=== PATIENT | female | born 1970 | race Caucasian/White ===

== ENCOUNTER 2017-12-17 15:30 | Outpatient (RCR) | payer BC, SELFPAY ==
--- NOTE | 2017-11-04 15:54 | HMH.PTOPEV ---
Rehab Outpatient Evaluation Rehab OP Evaluation Start: 11/04/17 15:35 Freq: Status: Active Protocol: Document 11/04/17 15:35 GURU (Rec: 11/04/17 15:54 GURU [id number]) Electronically Signed By Aravind Mtz, PT 11/04/17 15:35 Outpatient Therapy Subjective History Subjective History Pt reports h/o chronic neck pain beginning ~1 yr ago. Pt reports insidious onset with L > R sided neck pain, and intermittent radicular s/s from L SH area to L hand. Chief Complaint Pain Spasms Stiff Paresthesia Weakness Symptom Type Ache Throb Sharp Dull Stabbing Burning Numbness Tingling Shooting Symptoms Relieved By Rest/Positioning Heat OTC Meds Prescription Meds Symptoms Aggravated By Physical Activity Lifting Prior Functional Limitations None Current Functional Limitations Reaching Lifting Housework Driving Symptom Description Constant but Variable Level of pain today (0-10) 3 Pain scale - at its best (0-10) 2 Pain scale - at its worst (0-10) 8 Cervical Eval Palpation Cervical Muscles L Cervical Paraspinal L Suboccipital R CT Junction L CT Junction L Upper Trapezius Cervical/Thoracic Palpation Findings Tenderness Trigger Point Muscle Guarding Posture Head/C-Spine Posture Sitting Position Neutral Position Head/C-Spine Posture Standing Position Neutral Position Flexibility Deficits Upper Trapezius Muscle Length (L) Moderate Tightness Scalene Group Muscle Length (L) Moderate Tightness Sternocleidomastoid Muscle Length (L) Moderate Tightness Passive Joint Mobility Cervical PIVM Dec: R C3/4 L C3/4 R C4/5 L C4/5 R C5/6
== END 2017-12-17 15:31 | disposition home or self-care (01) ==
LOC: PT 15:30
PROVIDERS: Family Provider Emergency Medicine; PCP Emergency Medicine; Visit Provider Emergency Medicine
DX: M54.2 Cervicalgia (principal)
CPT/HCPCS: 97010; 97012; 97014; 97035; 97110; 97140; G0283

== ENCOUNTER → 2017-12-24 09:02 | Outpatient (REF) | payer BC, SELFPAY ==
[2017-12-25 12:15] LABS: Amphetamine/Metha Screen,Urine Negative ng/mL (<1000); Barbiturates Screen,Urine Negative ng/mL (<200); Benzodiazepines Screen,Urine Negative ng/mL (200); Cannabinoid Screen,Urine Negative ng/mL (<50); Cocaine Screen,Urine Negative ng/g (<300); Methadone Screen,Urine Negative ng/mL (<300); Opiate Screen,Urine Negative ng/mL (<300); Phencyclidine Screen,Urine Negative ng/mL (<25)
== END ==
LOC: LAB 09:02
PROVIDERS: Visit Provider Emergency Medicine
DX: F41.9 Anxiety disorder, unspecified (principal); Z79.899 Other long term (current) drug therapy
CPT/HCPCS: 80305

== ENCOUNTER → 2018-01-22 10:12 | Outpatient (CLI) | payer BC, SELFPAY | PROVIDERS: Visit Provider Emergency Medicine | DX: M54.2 Cervicalgia (principal); R10.11 Right upper quadrant pain ==

== ENCOUNTER → 2018-02-05 08:03 | Outpatient (CLI) | payer BC, SELFPAY ==
--- NOTE | 2018-02-05 08:04 | US_ITS ---
US gallbladder HISTORY: Mid abdominal pain and diarrhea ITS.REASON: right upper quadrant pain ORDERING PHYSICIAN: Jose Luis Slater MD PATIENT AGE: 47 years Comparison: None FINDINGS: PANCREAS: Unremarkable. No obvious mass or abnormal fluid collection. No ductal dilatation LIVER: No focal liver lesions demonstrated. Homogeneous echogenicity. No intrahepatic biliary ductal dilatation evident RIGHT KIDNEY: Unremarkable. Normal size and echogenicity. No hydronephrosis GALLBLADDER: Gallbladder is somewhat contracted. No stones, gallbladder wall thickening, pericholecystic fluid, or biliary dilatation is evident. Common bile duct measures 4 mm. IMPRESSION: Unremarkable right upper quadrant ultrasound
== END ==
PROVIDERS: Family Provider Emergency Medicine; PCP Emergency Medicine; Visit Provider Emergency Medicine
DX: R10.11 Right upper quadrant pain (principal)
CPT/HCPCS: 76705

== ENCOUNTER → 2018-02-13 09:15 | Outpatient (CLI) | payer BC, SELFPAY ==
--- NOTE | 2018-02-13 09:16 | MR_ITS ---
MR cervical spine wo con, MR 3-d myelogram/MRCP Ordering Physician: Jose Luis Slater MD Patient Age: 47 years: Female HISTORY: ITS.REASON: neck pain Neck pain past year or longer. Headaches left arm pain at times left hand pain at fourth and fifth digits TECHNIQUE: Sagittal STIR, T1, T2, axial T1 and T2. On 1.5T Siemens wide bore MRI. 3-D MR myelogram image set obtained & performed on MRI workstation. Additional sagittal thin section T2 weighted dataset obtained from this latter acquisition as well (---76 CPT) COMPARISON :Sagittal STIR, T1, T2, axial T1 and T2. On 1.5T Siemens wide bore MRI. 3-D MR myelogram image set obtained & performed on MRI workstation. Additional sagittal thin section T2 weighted dataset obtained from this latter acquisition as well (---76 CPT) FINDINGS The cervical cranial junction normal. . The cervical vertebral bodies intact. There is reversal of normal cervical curvature at C4 through C6. Likely reflecting long-standing related to degenerative disc changes through this segment . C2/3 disc intact cord normal C3/4 disc intact mild central disc prominence. Cord normal C4/5. Mild Disc space narrowing. Cervical spondylosis. Central disc protrusion. Posterior osteophytic ridging with bilateral uncovertebral joint hypertrophy most pronounced the left. These features yield mild spinal stenosis with the more prominent leftward spurring encroach upon the left recess and entry of the left foramen. Moderate central canal spinal stenosis. (spinal canal measures 7.7 mm at midline ( C5-C6 marked degenerative disc space narrowing. Reactive endplate changes. Cervical spondylosis with diffuse posterior ossific ridging. Additional spur and hard disc left paracentral indenting the thecal sac to the left and & encroach upon entry of the left foramen. Mild central canal stenosis. With additional left paracentral spur/hard disc. The disc osteophyte features in the leftward hard disc encroaches upon left recess & entry of the left right foramen. Mild/moderate overall central canal stenosis. (. C6/7, disc intact. C7/T1 and T1/T2 disc intact.\ Minimal facet arthropathy bilaterally most evident at mid T-spine. 3-D MRI myelogram image shows moderately narrowing the spinal canal reflecting the spinal stenosis at C4/5 and C and C5/6. IMPRESSION Degenerative disc changes and cervical spondylosis at C4/5 C5/6: ... Results in Moderate central canal stenosis C4/5; & at C5/6 Spurring and hard disc most evident left paracentral at both levels. And yields recess and foraminal encroachment left greater than right, both levels. Reversal of normal cervical curvature mid C-spine due to these degenerative changes at C4/5 C5/6 as well
== END ==
PROVIDERS: PCP Emergency Medicine; Visit Provider Emergency Medicine
DX: M54.2 Cervicalgia (principal)
CPT/HCPCS: 72141; 76376

== ENCOUNTER 2018-02-14 15:30 | Outpatient (RCR) | payer BC, SELFPAY ==
--- NOTE | 2018-01-31 14:54 | HMH.PTOPEV ---
PT Outpatient Evaluation Rehab PT Outpatient Evaluation Start: 01/31/18 14:13 Freq: Status: Active Protocol: Document 01/31/18 14:42 ANGELO (Rec: 01/31/18 14:54 PHORITU [id number]) Electronically Signed By Jonny Cortes, PT 01/31/18 14:42 Outpatient Therapy Subjective History Subjective History Pt is 47 yo white female who presents with neck pain x ~ 1 yr with insidious onset of symptoms. She reports pain is constant, but worse with certain movements and she has intermittent pain/tingling in her left UE. She reports cold increases her pain significantly. She also reports no significant PMH. Chief Complaint Pain Stiff Symptom Type Ache Burning Tingling Symptoms Aggravated By Physical Activity Prior Functional Limitations None Current Functional Limitations Housework Sleeping Symptom Description Constant but Variable Level of pain today (0-10) 3 Pain scale - at its worst (0-10) 9 Cervical Eval Palpation Cervical Muscles R Upper Trapezius L Upper Trapezius Cervical/Thoracic Palpation Findings Tenderness Flexibility Deficits Upper Trapezius Muscle Length (R) Mild Tightness (L) Mild Tightness Scalene Group Muscle Length (L) Mild Tightness Passive Joint Mobility Cervical PIVM Dec: R C6/7 L C6/7 R C7/T1 L C7/T1 WNL: R OA L OA R AA L AA R C2/3 L C2/3 R C3/4 L C3/4 R C4/5 L C4/5 R C5/6 L C5/6 AROM Cervical Spine Extension Active Range of 0-30 Motion (degrees) Cervical Spine Flexion Active Range of 0-45 Motion (degrees) Cervical Spine Right Lateral Flexion 0-45 Active Range of Motion (degrees) Cervical Spine Left Lateral Flexion 0-35 Active Range of Motion (degrees) Cervical Spine Right Rotation Active 0-45
== END 2018-02-14 15:31 | disposition home or self-care (01) ==
LOC: PT 15:30
PROVIDERS: Family Provider Emergency Medicine; PCP Emergency Medicine; Visit Provider Emergency Medicine
DX: M54.2 Cervicalgia (principal)
CPT/HCPCS: 97010; 97014; 97035; 97110; 97140; 97163; G0283

== ENCOUNTER → 2018-02-19 11:18 | Outpatient (REF) | payer BC, SELFPAY ==
[2018-02-19 14:08] LABS: Amphetamine/Metha Screen,Urine Negative ng/mL (<1000); Barbiturates Screen,Urine Negative ng/mL (<200); Benzodiazepines Screen,Urine Negative ng/mL (<200); Cannabinoid Screen,Urine Negative ng/mL (<50); Cocaine Screen,Urine Negative ng/mL (<300); Methadone Screen,Urine Negative ng/mL (<300); Opiate Screen,Urine Positive ng/mL (<300); Phencyclidine Screen,Urine Negative ng/mL (<25)
== END ==
LOC: LAB 11:18
PROVIDERS: Visit Provider Emergency Medicine
DX: Z79.899 Other long term (current) drug therapy (principal)
CPT/HCPCS: 80305

== ENCOUNTER → 2018-03-10 13:09 | Outpatient (POV) | payer BC, SELFPAY ==
[2018-03-10 13:44] VITALS: BP 160/100; PULSE 65; RESP 18; O2SAT 98
--- NOTE | 2018-03-10 14:50 | HMH.PMCON ---
Assessment and Plan (1) DDD (degenerative disc disease), cervical Current visit: No Status: Chronic Category: Medical Code(s): M50.30 - Other cervical disc degeneration, unspecified cervical region - Assessment and plan all Dx Assessment and Plan for all problems:: We will plan to refer the patient to neurosurgery. We will also set up a C5-C6 cervical epidural steroid injection for the patient. Patient is not on any anticoagulation and tried and failed conservative therapies including physical therapy and massage therapy. Patient has had a history of trafficking controlled substances along with heroin. Patient is not a narcotic candidate at this time given her ORT score in this history. This note was dictated using voice recognition software and may contain errors or omissions HPI - Data of Consult Consult date: 03/10/18 Requesting Physician: Elidia Tejada APRN Primary Care Provider: Jose Luis Slater MD Family Provider: Jose Luis Slater MD - Consult Narrative Reason for consult: Neck pain History of present illness: Ms. Douglas is a 47 year old female who presents today to discuss her neck pain. Patient states that the recurrence of her neck pain started gradually several years ago. Patient states she has left arm numbness and tingling. Patient rates her pain a 5 out of 10. Patient's tried and failed chiropractic therapy, physical therapy, massage therapy. She states that standing and heat increases her pain while rest and Tylenol decreases pain. Patient had a recent MRI showing osteophytes along with degenerative changes of the cervical spine. Patient does have hard disc left paracentral indenting the thecal sac to the left and encroaching upon the left foramen. Patient has not seen any neurosurgery. CC: Elidia Tejada APRN [facility] History I have reviewed the patient's past medical history: Yes Other Medical History: Reports: Other Laterality Cases: Bilateral: Myringotomy (Ear Tubes), Tonsillectomy Other Surgeries: Yes: Appendectomy, Hysterectomy-Partial, Other Amputation: No Fractures: No - *Social History Smoking Status: Current every day smoker Tobacco Type: cigarettes # Packs/Day (cigarettes): 2 Alcohol Intake: never Substance Use Type: heroin Occupational Status: other Housing: house - Psychiatric History Expresses thoughts of harming self/others: None Suicide Plan Description: No Plan *Family Hx:: Cancer, Diabetes Review of Systems - Review of Systems ROS General: no recent weight change, no fever, no sleep disturbances Respiratory: no cough, no shortness of air, no recurring pulmonary infections Cardiovascular/Peripheral Vascular: No chest pain, No palpitations, no edema, no shortness of breath. Gastrointestinal: no incontinence, normal bowel movements reported Genitourinary: no incontinence Musculoskeletal: Neck pain, left arm pain Psychiatric: normal mood/ affect Neurological: Weakness of left upper extremity at times, [denies balance issues] Meds Allergies Allergy/AdvReac Type Severity Reaction Status Date / Time No Known Allergies Allergy Verified 02/19/18 10:04 Objective Vital signs: Pulse Resp BP Pulse Ox 65 18 160/100 98 03/10/18 13:44 03/10/18 13:44 03/10/18 13:44 03/10/18 13:44 Narrative: Physical Exam General: Alert and oriented x3, no acute distress, pleasant and cooperative, [on room air] Lungs: Resps E/U, Symmetrical chest expansion, Eyes: PERRL Musculoskeletal: Flexion and extension of cervical spine somewhat guarded secondary to pain, deep tendon reflexes normal, strength in upper and lower extremities [5/5], normal gait noted Neurological: speech clear, 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
--- NOTE | 2018-03-10 14:53 | P.CONS_ITS ---
Assessment and Plan (1) DDD (degenerative disc disease), cervical Current visit: No Status: Chronic Category: Medical Code(s): M50.30 - Other cervical disc degeneration, unspecified cervical region - Assessment and plan all Dx Assessment and Plan for all problems:: We will plan to refer the patient to neurosurgery. We will also set up a C5-C6 cervical epidural steroid injection for the patient. Patient is not on any anticoagulation and tried and failed conservative therapies including physical therapy and massage therapy. Patient has had a history of trafficking controlled substances along with heroin. Patient is not a narcotic candidate at this time given her ORT score in this history. This note was dictated using voice recognition software and may contain errors or omissions HPI - Data of Consult Consult date: 03/10/18 Requesting Physician: Elidia Tejada APRN Primary Care Provider: Jose Luis Slater MD Family Provider: Jose Luis Slater MD - Consult Narrative Reason for consult: Neck pain History of present illness: Ms. Douglas is a 47 year old female who presents today to discuss her neck pain. Patient states that the recurrence of her neck pain started gradually several years ago. Patient states she has left arm numbness and tingling. Patient rates her pain a 5 out of 10. Patient's tried and failed chiropractic therapy, physical therapy, massage therapy. She states that standing and heat increases her pain while rest and Tylenol decreases pain. Patient had a recent MRI showing osteophytes along with degenerative changes of the cervical spine. Patient does have hard disc left paracentral indenting the thecal sac to the left and encroaching upon the left foramen. Patient has not seen any neurosurgery. CC: Elidia Tejada APRN [facility] History I have reviewed the patient's past medical history: Yes Other Medical History: Reports: Other Laterality Cases: Bilateral: Myringotomy (Ear Tubes), Tonsillectomy Other Surgeries: Yes: Appendectomy, Hysterectomy-Partial, Other Amputation: No Fractures: No - *Social History Smoking Status: Current every day smoker Tobacco Type: cigarettes # Packs/Day (cigarettes): 2 Alcohol Intake: never Substance Use Type: heroin Occupational Status: other Housing: house - Psychiatric History Expresses thoughts of harming self/others: None Suicide Plan Description: No Plan *Family Hx:: Cancer, Diabetes Review of Systems - Review of Systems ROS General: no recent weight change, no fever, no sleep disturbances Respiratory: no cough, no shortness of air, no recurring pulmonary infections Cardiovascular/Peripheral Vascular: No chest pain, No palpitations, no edema, no shortness of breath. Gastrointestinal: no incontinence, normal bowel movements reported Genitourinary: no incontinence Musculoskeletal: Neck pain, left arm pain Psychiatric: normal mood/ affect Neurological: Weakness of left upper extremity at times, [denies balance issues] Meds Allergies Allergy/AdvReac Type Severity Reaction Status Date / Time No Known Allergies Allergy Verified 02/19/18 10:04 Objective Vital signs: Pulse Resp BP Pulse Ox 65 18 160/100 98 03/10/18 13:44 03/10/18 13:44 03/10/18 13:44 03/10/18 13:44 Narrative: Physical Exam General: Alert and oriented x3, no acute distress, pleasant and cooperative, [ on room air]
== END ==
PROVIDERS: Family Provider Emergency Medicine; PCP Emergency Medicine; Visit Provider Clinical Nurse Specialist Family Health
DX: M50.30 Other cervical disc degeneration, unspecified cervical region (principal)
CPT/HCPCS: 99202

== ENCOUNTER → 2018-03-13 14:28 | Outpatient (POV) | payer BC, SELFPAY | PROVIDERS: Family Provider Emergency Medicine; PCP Emergency Medicine; Visit Provider Neurological Surgery | DX: Z00.00 Encounter for general adult medical examination without abnormal findings (principal) ==

== ENCOUNTER → 2018-03-28 10:52 | Outpatient (CLI) | payer BC, SELFPAY ==
[2018-03-28 13:41] LABS: Amphetamine/Metha Screen,Urine Negative ng/mL (<1000); Barbiturates Screen,Urine Negative ng/mL (<200); Benzodiazepines Screen,Urine Negative ng/mL (<200); Cannabinoid Screen,Urine Negative ng/mL (<50); Cocaine Screen,Urine Negative ng/mL (<300); Methadone Screen,Urine Negative ng/mL (<300); Opiate Screen,Urine Negative ng/mL (<300); Phencyclidine Screen,Urine Negative ng/mL (<25)
[2018-03-28 13:46] LABS: T4 (Thyroxine) 8.2 ug/dl (4.7-13.3); Thyroid Stimulating Hormone 1.31 uIU/ml (0.358-3.740)
[2018-03-28 15:14] LABS: Erythrocyte Sedimentation Rate 12 mm/hr (0-20)
== END ==
PROVIDERS: Visit Provider Emergency Medicine
DX: R53.83 Other fatigue (principal); Z79.899 Other long term (current) drug therapy
CPT/HCPCS: 80305; 84436; 84443; 85651

== ENCOUNTER → 2018-04-15 09:18 | Outpatient (POV) | payer BC, SELFPAY ==
[2018-04-15 09:51] VITALS: BP 156/100; PULSE 70; RESP 18; TEMP 36.5; O2SAT 98; BMI 26.2
--- NOTE | 2018-04-15 10:18 | P.CONS_ITS ---
[facility] Pain Management SOAP Note Subjective:: Patient is a pleasant 47-year-old white female who we are treating for neck pain with cervical radicular symptoms. Patient is following up after cervical epidural steroid injection. Patient states she had 90% relief with her injection. She rates her pain a 3 out of 10 and states she is much more fu nctional. Patient states that the radicular symptoms have improved. Patient would like to finish the epidural series of 3. ROS General: no recent weight change, no fever, no sleep disturbances Respiratory: no cough, no shortness of air, no recurring pulmonary infections Cardiovascular/Peripheral Vascular: No chest pain, No palpitations, no edema, no shortness of breath. Gastrointestinal: no incontinence, normal bowel movements reported Genitourinary: no incontinence Musculoskeletal: Neck pain, arm pain Psychiatric: normal mood/ affect Neurological: [denies weakness in extremities], [denies balance issues] Objective:: Physical Exam General: Alert and oriented x3, no acute distress, pleasant and cooperative, [on room air] Lungs: Resps E/U, Symmetrical chest expansion, Eyes: PERRL Musculoskeletal: Flexion and extension of cervical spine somewhat guarded secondary to pain, deep tendon reflexes normal, strength in upper and lower extremities [5/5], normal gait noted Neurological: speech clear, 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 Patient is not on blood thinners. Patient is on an anti-inflammatory regimen. Patient did extremely well after her last injection. I will follow-up with her after her second injection. This note was dictated using voice recognition software and may contain errors or omissions
== END ==
PROVIDERS: Family Provider Emergency Medicine; PCP Emergency Medicine; Visit Provider Clinical Nurse Specialist Family Health
DX: M50.10 Cervical disc disorder with radiculopathy, unspecified cervical region (principal)
CPT/HCPCS: 99213

== ENCOUNTER → 2018-11-11 10:20 | Outpatient (POV) | payer BC, SELFPAY ==
[2018-11-11 10:43] VITALS: BP 140/96; PULSE 83; RESP 18; O2SAT 98; BMI 21.9
--- NOTE | 2018-11-11 10:46 | P.CONS_ITS ---
[facility] Pain Management SOAP Note Subjective:: Patient is a pleasant 47-year-old white female who presents today for a follow- up. Patient is doing well with her neck pain and radicular symptoms however she has been having a few more bad days than good days she rates her pain a 3 out of 10. She would like to repeat her injection she has had 80% relief of her symptoms for up to almost a year. ROS General: no recent weight change, no fever, no sleep disturbances Respiratory: no cough, no shortness of air, no recurring pulmonary infections Cardiovascular/Peripheral Vascular: No chest pain, No palpitations, no edema, no shortness of breath. Gastrointestinal: no incontinence, normal bowel movements reported Genitourinary: no incontinence Musculoskeletal: Neck pain, arm pain Psychiatric: normal mood/ affect Neurological: [denies weakness in extremities], [denies balance issues] Objective:: Physical Exam General: Alert and oriented x3, no acute distress, pleasant and cooperative, [on room air] Lungs: Resps E/U, Symmetrical chest expansion, Eyes: PERRL Musculoskeletal: Flexion and extension of cervical spine somewhat guarded secondary to pain, deep tendon reflexes normal, strength in upper and lower extremities [5/5], normal gait noted Neurological: speech clear, 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 Patient has had good success with this in the past. Patient is not on any blood thinner. She has left arm radicular symptoms. She is continuing anti-inflammatories. She is continuing a home stretching program, Dr. Braden has reviewed this note and agrees with this plan of care. This note was dictated using voice recognition software and may contain errors or omissions
== END ==
PROVIDERS: PCP Emergency Medicine; Visit Provider Clinical Nurse Specialist Family Health
DX: M50.10 Cervical disc disorder with radiculopathy, unspecified cervical region (principal)
CPT/HCPCS: 99212

== ENCOUNTER → 2019-01-05 14:11 | Outpatient (POV) | payer BC, SELFPAY ==
[2019-01-05 14:27] VITALS: BP 139/78; PULSE 73; RESP 18; O2SAT 98; BMI 23.6
--- NOTE | 2019-01-05 15:12 | HMH.PAINSOAP ---
[facility] Pain Management SOAP Note Subjective:: Patient is a pleasant 47-year-old white female who is here today for follow-up of cervical epidural steroid injection of C5 and C6. She reports that she did have 80% relief with the injection, but her pain has started to return. Rates her pain a 4 out of 10 today. She is being treated for neck pain with cervical radicular symptoms. She does report that it does radiate to her left arm. ROS General: no recent weight change, no fever, no sleep disturbances Respiratory: no cough, no shortness of air, no recurring pulmonary infections Cardiovascular/Peripheral Vascular: No chest pain, No palpitations, no edema, no shortness of breath. Gastrointestinal: no incontinence, normal bowel movements reported Genitourinary: no incontinence Musculoskeletal: Neck pain, arm pain Psychiatric: normal mood/ affect, [denies depression], [denies anxiety] Neurological: [denies weakness in extremities], [denies balance issues] Objective:: Physical Exam General: Alert and oriented x3, no acute distress, pleasant and cooperative, [on room air] Lungs: Resps E/U, Symmetrical chest expansion, Eyes: PERRL Musculoskeletal: Flexion and extension of cervical spine somewhat guarded secondary to pain, deep tendon reflexes normal, strength in upper and lower extremities [5/5], normal gait noted Neurological: speech clear, stapler hand equal, no gross sensory deficits Assessment:: Degenerative disc disease cervical spinal cervical radiculopathy Plan:: We will schedule the patient for a C5-C6 epidural steroid injection. He has had good success with them in the past. She is not on any anticoagulation therapy. Continuing anti-inflammatories and home stretching program. See her after her procedure and she is been instructed to call the office if she has any concerns prior to the next appointment. Dr. Braden has reviewed this note and agrees with this plan of care. This note was dictated using voice recognition software and may contain errors or omissions
--- NOTE | 2019-01-05 15:15 | P.CONS_ITS ---
[facility] Pain Management SOAP Note Subjective:: Patient is a pleasant 47-year-old white female who is here today for follow-up of cervical epidural steroid injection of C5 and C6. She reports that she did have 80% relief with the injection, but her pain has started to return. Rates her pain a 4 out of 10 today. She is being treated for neck pain with cervical radicular symptoms. She does report that it does radiate to her left arm. ROS General: no recent weight change, no fever, no sleep disturbances Respiratory: no cough, no shortness of air, no recurring pulmonary infections Cardiovascular/Peripheral Vascular: No chest pain, No palpitations, no edema, no shortness of breath. Gastrointestinal: no incontinence, normal bowel movements reported Genitourinary: no incontinence Musculoskeletal: Neck pain, arm pain Psychiatric: normal mood/ affect, [denies depression], [denies anxiety] Neurological: [denies weakness in extremities], [denies balance issues] Objective:: Physical Exam General: Alert and oriented x3, no acute distress, pleasant and cooperative, [on room air] Lungs: Resps E/U, Symmetrical chest expansion, Eyes: PERRL Musculoskeletal: Flexion and extension of cervical spine somewhat guarded secondary to pain, deep tendon reflexes normal, strength in upper and lower extremities [5/5], normal gait noted Neurological: speech clear, music 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 He has had good success with them in the past. She is not on any anticoagulation therapy. Continuing anti-inflammatories and home stretching program. See her after her procedure and she is been instructed to call the office if she has any concerns prior to the next appointment. Dr. Braden has reviewed this note and agrees with this plan of care. This note was dictated using voice recognition software and may contain errors or omissions
== END ==
PROVIDERS: PCP Emergency Medicine; Visit Provider Clinical Nurse Specialist Family Health
DX: M50.10 Cervical disc disorder with radiculopathy, unspecified cervical region (principal)
CPT/HCPCS: 99212

== ENCOUNTER 2019-01-16 11:47 | Day surgery (SDC) | payer BC, SELFPAY ==
[2019-01-16 12:08] VITALS: BP 106/69; PULSE 74; RESP 18; O2SAT 97; BMI 23.8
--- NOTE | 2019-01-16 12:28 | HMH.PMPROC ---
- Procedure Date: 01/16/19 Time: 12:28 Anesthesiologist:: Rashad Braden MD Complications:: None Pre-procedure Diagnosis:: Degenerative disc disease of the cervical spine with cervical radicular apathy symptoms Post-procedure Diagnosis:: Same Indications for Procedure:: This patient is a pleasant 48-year-old white female who we are treating for neck pain with cervical radicular symptoms. She did very well with her last cervical epidural steroid injection. She was 80% better for a period of time. Her pain started to return. We will do repeat cervical epidural steroid injection under fluoroscopy today. Procedure Details:: Cervical epidural steroid injection under fluoroscopy Informed consent was obtained and the risks and benefits of the procedure was explained to the patient. The patient was taken to the procedure room placed prone on the procedure table. The neck was prepped using ChloraPrep. The skin and subcutaneous tissues were anesthetized using lidocaine. I placed a 18-gauge epidural needle into the C5-C6 interspace and advanced using [id number] to air and fluoroscopic guidance. After confirmation of needle placement in the epidural space with dye, I injected 3 mL's lidocaine 1.5% and Depo-Medrol 80 mg. The patient tolerated the procedure well with no complications. Plan and Disposition:: We will follow-up with her in 2 weeks. Will reevaluate symptoms at that time.
[2019-01-16 12:32] VITALS: BP 131/72; PULSE 68; RESP 18
[2019-01-16 12:33] VITALS: BP 130/71; PULSE 69; RESP 18; O2SAT 99
[2019-01-16 12:47] VITALS: BP 115/75; PULSE 66; RESP 17; O2SAT 97
== END 2019-01-16 12:44 | disposition home or self-care (01) ==
LOC: SC.PAINP 11:48
PROVIDERS: PCP Emergency Medicine; Visit Provider Anesthesiology
DX: M50.10 Cervical disc disorder with radiculopathy, unspecified cervical region (principal)
CPT/HCPCS: 62321; J1040; Q9966

== ENCOUNTER → 2019-02-10 10:45 | Outpatient (CLI) | payer BC, SELFPAY ==
--- NOTE | 2019-02-10 10:47 | MM_ITS ---
MM Dig screening mamm BI w/CAD CAD Screening COMPARISON: Post ultrasound-guided biopsy left mammogram 05/28/2017 and digital mammograms with CAD 04/24/2017 INDICATION: There is no personal or family history of breast cancer. There has been previous cyst aspiration left breast with benign findings. TECHNIQUE: Standard CC and MLO images were obtained. R2 CAD reviewed. FINDINGS: Moderate scattered fibroglandular densities are seen throughout both breast. There are couple benign-appearing microcalcifications just deep to the nipple right breast. There is a possible new asymmetric density near the axillary tail left breast only seen on the MLO projection. It has slightly irregular borders. Recommend patient return for spot compression MLO view and 90 degree lateral view and ultrasound may be mesentery as well. Otherwise there is no suspicious lesion in either breast and there are no suspicious microcalcifications. IMPRESSION: Fibrofatty parenchyma with possible new asymmetric density left breast BI-RADS Category: 0 Need Additional Imaging Evaluation RECOMMENDED FOLLOW-UP: IMM - IMMEDIATE FOLLOW-UP RECOMMENDED (A letter has been sent to the patient regarding results of the study.)
== END ==
PROVIDERS: PCP Emergency Medicine; Visit Provider Emergency Medicine
DX: Z12.31 Encounter for screening mammogram for malignant neoplasm of breast (principal)
CPT/HCPCS: 77067

== ENCOUNTER → 2019-02-16 09:19 | Outpatient (POV) | payer BC, SELFPAY ==
[2019-02-16 09:27] VITALS: BP 122/84; PULSE 87; RESP 18; O2SAT 98; BMI 22.8
--- NOTE | 2019-02-16 10:20 | P.CONS_ITS ---
[facility] Pain Management SOAP Note Subjective:: Patient is a pleasant 48-year-old white female who presents today for follow-up after cervical epidural steroid injection. She is doing much better. She is continuing her home stretching program. She would like to repeat her injection in several months. She rates her pain today a 2 out of 10. She is currently in a Suboxone clinic. Review of Systems General: No recent weight changes, no fever, no sleep disturbances Respiratory: No cough, no shortness of air, no recurring pulmonary infections Cardiovascular/peripheral vascular: No chest pain, no palpitations, no edema, no shortness of breath Gastrointestinal: No new onset incontinence, normal bowel movements reported Genitourinary: No new onset incontinence Musculoskeletal: Neck pain Psychiatric: Normal mood/affect Neurological: [Denies weakness in extremities], [denies balance issues] Objective:: Physical exam General: Alert and oriented x3, no acute distress, pleasant and cooperative, [on room air] Lungs: Respirations even and unlabored, symmetrical chest expansion Eyes: PERRL Musculoskeletal: Flexion and extension of cervical spine somewhat guarded secondary to pain, deep tendon reflexes normal, strength in upper and lower extremities [5/5], normal gait noted Neurological: Speech clear, 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 Patient overall doing well at this time. With 80% improvement of her symptoms. Dr. Braden has reviewed this note and agrees with this plan of care. This note was dictated using voice recognition software and make contain errors or omissions.
== END ==
PROVIDERS: PCP Emergency Medicine; Visit Provider Clinical Nurse Specialist Family Health
DX: M50.10 Cervical disc disorder with radiculopathy, unspecified cervical region (principal)
CPT/HCPCS: 99212

== ENCOUNTER → 2019-02-27 13:58 | Outpatient (CLI) | payer BC, SELFPAY ==
--- NOTE | 2019-02-27 14:04 | MM_ITS ---
MM Dig mamm DX unilat LT CAD, US breast LT complete INDICATION: Follow-up abnormal mammogram ORDERING PHYSICIAN: Jose Luis Slater MD PATIENT AGE: 48 years COMPARISON: 02/10/2019, 04/17/1717 TECHNIQUE: Spot compression views of the left breast along with left breast ultrasound FINDINGS: Mammogram: Minimal asymmetric density in the superior left breast and in the deep aspect of left breast superiorly. Spot compression views however failed to demonstrate any discrete nodule despite multiple spot compression views. Left breast ultrasound: No cystic or solid nodule demonstrated. IMPRESSION: Scattered areas of asymmetry probably benign. Recommend 6 month mammographic follow-up. No convincing evidence of malignancy BI-RADS Category: 3 Probably Benign Finding Short Term Follow-up RECOMMENDED FOLLOW-UP: 6M - 6 MONTH FOLLOW-UP (A letter has been sent to the patient regarding results of the study.)
--- NOTE | 2019-02-27 14:04 | XR_ITS ---
XR foot RT min 3V HISTORY: ITS.REASON: right foot pain ORDERING PHYSICIAN: Jose Luis Slater MD PATIENT AGE: 48 years COMPARISON: None FINDINGS: No fracture or dislocation. No lytic or blastic change. There is normal mineralization.. The joint spaces are well-preserved. No significant degenerative/arthritic changes. No erosive changes evident. IMPRESSION: Negative, no acute finding
== END ==
PROVIDERS: PCP Emergency Medicine; Visit Provider Emergency Medicine
DX: M79.671 Pain in right foot (principal); R92.8 Other abnormal and inconclusive findings on diagnostic imaging of breast
CPT/HCPCS: 73630; 76641; 77065

== ENCOUNTER → 2020-12-30 18:02 | Outpatient (CLI) | payer BC, OTHER, SELFPAY ==
[2020-12-30 18:37] LABS: Basophils # 0.1 K/mm3 (0-0.2); Basophils % 0.8 % (0.1-2.0); Eosinophils # 0.3 K/mm3 (0.0-0.4); Eosinophils % 3.4 % (0.1-12.0); Hematocrit 43.1 % (37.0-47.0); Hemoglobin 14.4 g/dL (12.2-16.2); Lymphocytes # 2.8 K/mm3 (0.7-4.5); Lymphocytes % 30.3 % (10-50); Mean Corpuscular HGB Conc 33.3 g/dL (31.8-35.4); Mean Corpuscular Hemoglobin 30.9 pg (27.0-31.2); Mean Corpuscular Volume 92.7 fl (81-99); Mean Platelet Volume 9.3 fl (7.4-10.4); Monocytes # 0.5 K/mm3 (0.1-1.0); Monocytes % 5.2 % (1.7-9.3); Neutrophils # 5.6 K/mm3 (1.8-7.8); Neutrophils % 60.1 % (37.0-80.0); Platelet Count 378 K/mm3 (142-424); Red Blood Count 4.65 M/mm3 (4.20-5.40); Red Cell Distribution Width 14.3 % (11.5-17.5); White Blood Count 9.3 K/mm3 (4.8-10.8)
[2020-12-30 18:43] LABS: Alanine Aminotransferase 15 U/L (12-78); Albumin Level 4.7 g/dl (3.5-5.0); Albumin/Globulin Ratio 1.6 (1.1-1.8); Alkaline Phosphatase 107 U/L (38-126); Anion Gap 15.7 mEq/L (5-15); Aspartate Amino Transferase 26 U/L (14-36); Bilirubin,Total 0.5 mg/dl (0.2-1.3); Blood Urea Nitrogen 7 mg/dl (7-17); Carbon Dioxide 29 mmol/L (22.0-30.0); Chloride 99 mmol/L (98-107); Chol/HDL Ratio 3.5 (1-3.5); Cholesterol 155 mg/dl (140-200); Estimated Glomerular Filt Rate 106 ml/min (>60); GFR (African American) 128 ML/MIN (>60); Globulin 2.9 g/dL (1.3-3.2); Glucose 89 mg/dl (74-100); HDL Cholesterol 44 mg/dl (40-60); Potassium 3.7 mmoL/L (3.5-5.1); Sodium 140 mmol/L (136-145); Total Protein,Serum 7.6 g/dl (6.3-8.2); Triglycerides 144 mg/dl (30-150); VLDL Cholesterol 29 mg/dL (0-40)
[2020-12-30 18:54] LABS: Direct LDL Cholesterol 75.44 mg/dL (100-129)
[2020-12-30 19:00] LABS: Free T4 (Free Thyroxine) 1.41 ng/dl (0.78-2.19)
[2021-01-02 17:11] LABS: Thyroid Stimulating Hormone 1.61 uIU/mL (0.465-4.68)
== END ==
PROVIDERS: Visit Provider Emergency Medicine
DX: M50.30 Other cervical disc degeneration, unspecified cervical region (principal); F41.9 Anxiety disorder, unspecified; R53.83 Other fatigue; E55.9 Vitamin D deficiency, unspecified; Z79.899 Other long term (current) drug therapy
CPT/HCPCS: 80053; 80061; 82306; 84439; 84443; 85025

== ENCOUNTER → 2021-03-15 19:28 | Outpatient (CLI) | payer BC, SELFPAY | PROVIDERS: PCP Emergency Medicine; Visit Provider Emergency Medicine | DX: Z20.822 Contact with and (suspected) exposure to COVID-19 (principal) | CPT/HCPCS: U0003 ==

== ENCOUNTER 2022-06-10 19:11 | Emergency (ER) | payer BC, SELFPAY ==
[2022-06-10 19:12] VITALS: BP 167/98; PULSE 92; RESP 19; TEMP 36.6; O2SAT 99; BMI 25.6
--- NOTE | 2022-06-10 19:25 | XR_ITS ---
PROCEDURE INFORMATION: Exam: XR Chest Exam date and time: 06/10/2022 8:04 PM Age: 51 years old Clinical indication: Cough and shortness of breath; Additional info: SOA cough TECHNIQUE: Imaging protocol: Radiologic exam of the chest. Views: 1 view. COMPARISON: CR CXR CHEST(2 VIEWS-NOT PORTABLE) 12/11/2016 11:47 PM FINDINGS: Lungs: No evidence of pneumonia or interstitial edema. Pleural spaces: Unremarkable. No pleural effusion. No pneumothorax. Heart/Mediastinum: Unremarkable. No cardiomegaly. Bones/joints: Unremarkable. IMPRESSION: No evidence of pneumonia or interstitial edema.
[2022-06-10 19:32] LABS: Basophils # 0.2 K/mm3 (0-0.2); Basophils % 1.4 % (0.1-2.0); Eosinophils # 0.2 K/mm3 (0.0-0.4); Eosinophils % 1.4 % (0.1-12.0); Hematocrit 39.2 % (37.0-47.0); Hemoglobin 12.7 g/dL (12.2-16.2); Lymphocytes # 3.8 K/mm3 (0.7-4.5); Lymphocytes % 35.6 % (10-50); Mean Corpuscular HGB Conc 32.4 g/dL (31.8-35.4); Mean Corpuscular Hemoglobin 30.5 pg (27.0-31.2); Mean Corpuscular Volume 94.2 fl (81-99); Mean Platelet Volume 7.8 fl (7.4-10.4); Monocytes # 0.7 K/mm3 (0.1-1.0); Monocytes % 6.5 % (1.7-9.3); Neutrophils # 5.9 K/mm3 (1.8-7.8); Neutrophils % 55.1 % (37.0-80.0); Platelet Count 445 K/mm3 (142-424); Red Blood Count 4.16 M/mm3 (4.20-5.40); Red Cell Distribution Width 13.7 % (11.5-17.5); White Blood Count 10.6 K/mm3 (4.8-10.8)
[2022-06-10 19:37] LABS: Chloride 100 mmol/L (98-107); Potassium 3.3 mmoL/L (3.5-5.1); Sodium 141 mmol/L (136-145)
--- NOTE | 2022-06-10 19:37 | HMH.EDGENADL ---
Discharge Plan Disposition Patient Disposition: Home, Self-Care Condition: Good Prescriptions Prescriptions: New fluticasone propionate [Flonase Allergy Relief] 50 mcg/actuation spray,suspension 1 spray intranasal DAILY PRN (Reason: allergy symptoms) Qty: 16 0RF Rx Instructions: administer into each nostril cetirizine 10 mg tablet 10 mg PO DAILY Qty: 30 0RF No Action albuterol sulfate [Proventil HFA] 90 mcg/actuation HFA aerosol inhaler 2 puff INHALATION Q8H PRN (Reason: shortness of breath or wheezing) Qty: 8.5 2RF Breo Ellipta 100-25 mcg/dose blister with device 1 inh INHALATION DAILY Qty: 60 2RF trazodone 50 mg tablet 50 mg PO Q8H Qty: 30 2RF Dialyvite Vitamin D3 Max 1,250 mcg (50,000 unit) tablet 1,250 mcg PO WEEKLY Qty: 10 3RF azithromycin [Zithromax Z-Santino] 250 mg tablet See Rx Instructions PO .COMPLEX Qty: 6 0RF Rx Instructions: take 500 mg today (day 1), then 250 mg for 4 days (days 2-5) PO methylprednisolone [Medrol (Santino)] 4 mg tablets,dose pack See Rx Instructions PO PER PKG DIR Qty: 21 0RF Rx Instructions: PO PER PKG DIR benzonatate [Tessalon Perles] 100 mg capsule 100 mg PO TID PRN (Reason: cough) Qty: 20 0RF Referrals Follow up/Referrals: Provider,Referral, MD [Primary Care Provider] - See instructions Activity Restrictions/Add. Instructions Additional Instructions/Restrictions: You were evaluated in the emergency department today. Return for any new or worsening symptoms. supervisor covering and lining your prescriptions and take them as prescribed. Follow-up with your primary care provider over the next 48 hours. Refrain from drug use. Clinical Impressions Clinical Impression: Allergic rhinitis with postnasal drip Opiate overdose Qualifiers: Encounter type: initial encounter Injury intent: accidental or unintentional Qualified Code(s): T40.601A - Poisoning by unspecified narcotics, accidental (unintentional), initial encounter Instructions Patient Instructions: DI for Drug Overdose in Adults Discharge ED Provider: Merna Carver General Adult HPI General Chief complaint: Overdose Stated complaint: overdose Time Seen by Provider: 06/10/22 19:14 History of Present Illness HPI narrative: This patient is a 51-year-old female with history of opiate use disorder presented to the emergency department for evaluation of a suspected overdose. EMS reports they were called to the home of an unresponsive patient. That she was lying on the ground with sonorous respirations. They gave her 2 mg of Narcan, and she became alert and responsive. Since then, she has been alert and conversational. She is had no respiratory distress. Patient states that she currently feels really bad. She denies any specific complaints, but she states that she feels like she took opiates. She states that she did not, saying that the only thing that she took is aspirin and [id number] flu medication because she has had a cold for a few days. She denies taking over the standard recommended amount, and she denies any suicidal ideation. She denies any fever, chills, chest pain, shortness of breath, abdominal pain, nausea, vomiting, or other concerns. Related Data Previous Rx's Medication Instructions Recorded cholecalciferol (vitamin D3) 1,250 1,250 mcg PO WEEKLY #10 tabs 01/10/21 mcg (50,000 unit) tablet (Dialyvite Vitamin D3 Max) albuterol sulfate 90 mcg/actuation 2 puff inhalation Q8H PRN 03/06/21 aerosol inhaler (Proventil HFA) shortness of breath or wheezing #8.5 grams fluticasone furoate 100 1 inh inhalation DAILY #60 ea 03/06/21 mcg-vilanterol 25 mcg/dose inhalation powder (Breo Ellipta) trazodone 50 mg tablet 50 mg PO Q8H #30 tabs 03/06/21 azithromycin 250 mg tablet See Rx Instructions PO .COMPLEX #6 03/20/21 (Zithromax Z-Santino) tabs benzonatate 100 mg capsule 100 mg PO TID PRN cough #20 caps 03/20/21 (Tessalon Perles) methylprednisolone 4 mg tablets in See
[2022-06-10 19:39] LABS: Blood Urea Nitrogen 12 mg/dl (7-17); Creatinine Clearance Estimated 74 mL/min (50-200); Estimated Glomerular Filt Rate 66 ml/min (>60); GFR (African American) 80 ML/MIN (>60)
[2022-06-10 19:40] LABS: Alanine Aminotransferase 35 U/L (12-78); Albumin Level 4.5 g/dl (3.5-5.0); Albumin/Globulin Ratio 1.5 (1.1-1.8); Alkaline Phosphatase 103 U/L (38-126); Anion Gap 16.3 mEq/L (5-15); Aspartate Amino Transferase 40 U/L (14-36); Bilirubin,Total 0.2 mg/dl (0.2-1.3); Carbon Dioxide 28 mmol/L (22.0-30.0); Glucose 172 mg/dl (74-100); Salicylate 4.7 mg/dL (2.0-20.0); Total Protein,Serum 7.5 g/dl (6.3-8.2)
[2022-06-10 19:43] LABS: Acetaminophen < 10 ug/ml (10-30); Ethyl Alcohol < 10 mg/dl (0-10)
--- NOTE | 2022-06-10 20:02 | PC.NURSE ---
Notified RT of need for VBG
--- NOTE | 2022-06-10 20:04 | ECG_ITS ---
APPROVED REPORT Exam: Resting ECG HR:90 bpm ECG Measurements Heart Rate 90 AXES AR 154 P 78 QRSd 94 QRS 79 QT 369 T 67 QTc 417 Conclusion SINUS RHYTHM MODERATE ST DEPRESSION [0.05+ mV ST DEPRESSION] ABNORMAL ECG UNCONFIRMED REPORT Electronically signed by : Juve Bryant MD 06/11/2022 21:12:15
[2022-06-10 20:19] LABS: VBG Base Excess -1.1 mmol/L (-2.4-2.3); VBG HCO3 24.3 mmol/L (23-30); VBG Oxygen Saturation 98.3 % (50-70); VBG PH 7.36 mmol/L (7.31-7.41); VBG PO2 120.2 mmol/L (28-40); VBG Total CO2 25.6 mmol/L (23-27)
[2022-06-10 20:57] VITALS: BP 174/96; PULSE 97; RESP 16; TEMP 36.8; O2SAT 100
== END 2022-06-10 20:57 | disposition home or self-care (01) ==
PROVIDERS: Emergency Provider Emergency Medicine
DX: T40.601A Poisoning by unspecified narcotics, accidental (unintentional), initial encounter (principal); J30.9 Allergic rhinitis, unspecified; Z72.0 Tobacco use; F41.9 Anxiety disorder, unspecified; F32.A Depression, unspecified
CPT/HCPCS: 71045; 80053; 80329; 82803; 85025; 93005; 96365; 96375; 99284; J2405

== ENCOUNTER → 2022-11-28 08:20 | Outpatient (CLI) | payer BC, SELFPAY ==
[2022-11-28 14:38] LABS: Chloride 99 mmol/L (98-107)
[2022-11-28 14:39] LABS: Potassium 4.1 mmoL/L (3.5-5.1); Sodium 139 mmol/L (136-145)
[2022-11-28 14:41] LABS: Alanine Aminotransferase 15 U/L (12-78); Aspartate Amino Transferase 23 U/L (14-36); Blood Urea Nitrogen 15 mg/dl (7-17); Estimated Glomerular Filt Rate 88 ml/min (>60); GFR (African American) 107 ML/MIN (>60)
[2022-11-28 14:42] LABS: Albumin Level 4.1 g/dl (3.5-5.0); Albumin/Globulin Ratio 1.6 (1.1-1.8); Alkaline Phosphatase 91 U/L (38-126); Anion Gap 15.1 mEq/L (5-15); Bilirubin,Total 0.3 mg/dl (0.2-1.3); Calcium 9.3 mg/dl (8.4-10.2); Carbon Dioxide 29 mmol/L (22.0-30.0); Chol/HDL Ratio 2.9 (1-3.5); Cholesterol 139 mg/dl (140-200); Globulin 2.6 g/dL (1.3-3.2); Glucose 94 mg/dl (74-100); HDL Cholesterol 48 mg/dl (40-60); Total Protein,Serum 6.7 g/dl (6.3-8.2); Triglycerides 155 mg/dl (30-150); VLDL Cholesterol 31 mg/dL (0-40)
[2022-11-28 14:57] LABS: Direct LDL Cholesterol 70.26 mg/dL (100-129)
[2022-11-28 15:00] LABS: Basophils # 0.1 K/mm3 (0-0.2); Eosinophils # 0.2 K/mm3 (0.0-0.4); Eosinophils % 2.6 % (0.1-12.0); Hematocrit 39.3 % (37.0-47.0); Hemoglobin 12.4 g/dL (12.2-16.2); Lymphocytes # 2.3 K/mm3 (0.7-4.5); Lymphocytes % 39.7 % (10-50); Mean Corpuscular HGB Conc 31.7 g/dL (31.8-35.4); Mean Corpuscular Hemoglobin 29.6 pg (27.0-31.2); Mean Corpuscular Volume 93.4 fl (81-99); Mean Platelet Volume 8.2 fl (7.4-10.4); Monocytes # 0.5 K/mm3 (0.1-1.0); Monocytes % 7.8 % (1.7-9.3); Neutrophils # 2.8 K/mm3 (1.8-7.8); Neutrophils % 48.8 % (37.0-80.0); Platelet Count 334 K/mm3 (142-424); Red Cell Distribution Width 13.8 % (11.5-17.5); Triiodothryronine (T3) Uptake 31 % (23.5-40.5); White Blood Count 5.8 K/mm3 (4.8-10.8)
[2022-11-28 15:01] LABS: Free Thyroxine Index 2.4 ug/dL (5.93-13.13); T4 (Thyroxine) 7.6 ug/dl (5.53-11.0)
[2022-11-28 15:15] LABS: Thyroid Stimulating Hormone 1.03 uIU/mL (0.465-4.68)
== END ==
PROVIDERS: PCP Nurse Practitioner Family; Visit Provider Nurse Practitioner Family
DX: I10 Essential (primary) hypertension (principal)
CPT/HCPCS: 80053; 80061; 84436; 84443; 84479; 85025

== ENCOUNTER 2023-09-06 15:45 | Outpatient (CLI) | payer BC, SELFPAY ==
--- NOTE | 2023-09-06 15:54 | MM_ITS ---
PROCEDURE INFORMATION: Exam: MG Bilateral Screening 3D Mammography Exam date and time: 09/06/2023 3:39 PM Age: 52 years old Clinical indication: Screening mammogram TECHNIQUE: Imaging protocol: Bilateral Screening tomosynthesis and 2D mammography including computer-aided detection (CAD) when performed. COMPARISON: 1. MG MM DIG MAMM DX UNILAT LT CAD 02/27/2019 2:37 PM 2. MG DIG MAMM-SCREEN QAMAR 02/10/2019 11:14 AM 3. MG DMDXUL DIG MAMM-DX UNI-LT W/CAD 05/28/2017 2:22 PM 4. MG DMDXUAVL DIG MAMM-DX UNI A/VWS-LT W/CAD 05/10/2017 1:13 PM FINDINGS: MAMMOGRAPHY: Breast composition: There are scattered areas of fibroglandular density. Mass: None. Architectural distortion: No new or suspicious architectural distortion. Calcifications: No new or suspicious calcifications are present Asymmetric density: No new or suspicious asymmetric density is present Skin thickening: None. Axillary adenopathy: None. IMPRESSION: No mammographic evidence of malignancy. Recommend annual screening mammography unless otherwise clinically indicated. ASSESSMENT: BI-RADS category 1: Negative
== END 2023-09-06 23:59 ==
LOC: RAD 15:45
PROVIDERS: PCP Family Medicine; Visit Provider Family Medicine
DX: Z12.31 Encounter for screening mammogram for malignant neoplasm of breast (principal)
CPT/HCPCS: 77063; 77067

== ENCOUNTER 2024-01-20 12:05 | Outpatient (CLI) | payer BC, SELFPAY ==
[2024-01-20 18:57] LABS: Basophils # 0.1 K/mm3 (0-0.2); Basophils % 1.2 % (0.1-2.0); Eosinophils # 0.2 K/mm3 (0.0-0.4); Eosinophils % 3.1 % (0.1-12.0); Hematocrit 40.1 % (37.0-47.0); Hemoglobin 13.4 g/dL (12.2-16.2); Lymphocytes % 31.1 % (10-50); Mean Corpuscular HGB Conc 33.3 g/dL (31.8-35.4); Mean Corpuscular Hemoglobin 30.7 pg (27.0-31.2); Mean Corpuscular Volume 92.3 fl (81-99); Mean Platelet Volume 8.4 fl (7.4-10.4); Monocytes # 0.5 K/mm3 (0.1-1.0); Monocytes % 7.1 % (1.7-9.3); Neutrophils # 3.7 K/mm3 (1.8-7.8); Neutrophils % 57.6 % (37.0-80.0); Platelet Count 340 K/mm3 (142-424); Red Blood Count 4.35 M/mm3 (4.20-5.40); Red Cell Distribution Width 14.4 % (11.5-17.5); White Blood Count 6.3 K/mm3 (4.8-10.8)
[2024-01-20 19:24] LABS: Chloride 100 mmol/L (98-107)
[2024-01-20 19:25] LABS: Potassium 4.2 mmoL/L (3.5-5.1); Sodium 138 mmol/L (136-145)
[2024-01-20 19:27] LABS: Alanine Aminotransferase 26 U/L (12-78); Albumin Level 4.6 g/dl (3.5-5.0); Albumin/Globulin Ratio 1.5 (1.1-1.8); Alkaline Phosphatase 79 U/L (38-126); Anion Gap 13.2 mEq/L (5-15); Aspartate Amino Transferase 36 U/L (14-36); Bilirubin,Total 0.3 mg/dl (0.2-1.3); Blood Urea Nitrogen 17 mg/dl (7-17); Carbon Dioxide 29 mmol/L (22.0-30.0); Cholesterol 143 mg/dl (140-200); Estimated Glomerular Filt Rate 88 ml/min (>60); GFR (African American) 106 ML/MIN (>60); Total Protein,Serum 7.6 g/dl (6.3-8.2); Triglycerides 167 mg/dl (30-150); VLDL Cholesterol 33 mg/dL (0-40)
[2024-01-20 19:28] LABS: Calcium 10.3 mg/dl (8.4-10.2); Chol/HDL Ratio 3.1 (1-3.5); Glucose 88 mg/dl (74-100); HDL Cholesterol 46 mg/dl (40-60)
[2024-01-20 19:39] LABS: Direct LDL Cholesterol 62.06 mg/dL (100-129)
[2024-01-20 19:45] LABS: 25-OH Vitamin D, Total 52.7 ng/mL (30-100)
[2024-01-20 19:51] LABS: Hemoglobin A1C 5.5 % (4.0-6.0)
[2024-01-20 20:03] LABS: Thyroid Stimulating Hormone 2.23 uIU/mL (0.465-4.68)
[2024-01-21 10:59] LABS: HIV (1&2) Antibody Rapid NON REACTIVE
[2024-01-22 13:04] LABS: HCV Ab Non Reactive (Non Reactive)
== END 2024-01-20 23:59 | disposition home or self-care (01) ==
LOC: LAB.DROPOF 01-21 12:06
PROVIDERS: PCP Family Medicine; Visit Provider Family Medicine
DX: F11.10 Opioid abuse, uncomplicated (principal); F32.9 Major depressive disorder, single episode, unspecified
CPT/HCPCS: 86803; 86703; 80050; 80053; 80061; 82306; 83036; 84443; 85025

== ENCOUNTER 2024-03-18 11:37 | Outpatient (CLI) | payer BC, SELFPAY | END 2024-03-18 23:59 | disposition home or self-care (01) | LOC: LAB.DROPOF 03-19 11:37 | PROVIDERS: PCP Family Medicine; Visit Provider Family Medicine | DX: N39.0 Urinary tract infection, site not specified (principal) | CPT/HCPCS: 87086; 87088; 87186 ==

== ENCOUNTER 2025-01-08 13:55 | Outpatient (CLI) | payer MEDICAID, SELFPAY ==
[2025-01-08 18:31] LABS: Basophils % 0.7 % (0.1-2.0); Eosinophils # 0.1 Kmm3 (0.0-0.4); Eosinophils % 1.4 % (0.1-12.0); Hematocrit 40.2 % (37.0-47.0); Hemoglobin 13.2 g/dL (12.2-16.2); Immature Granulocytes # 0.01 10^3uL; Immature Granulocytes % 0.2 %; Lymphocytes # 1.7 K/mm3 (0.7-4.5); Lymphocytes % 29.5 % (10-50); Mean Corpuscular HGB Conc 32.8 g/dL (31.8-35.4); Mean Corpuscular Volume 91.4 fl (81-99); Mean Platelet Volume 10.8 fl (7.4-10.4); Monocytes # 0.5 K/mm3 (0.1-1.0); Monocytes % 7.9 % (1.7-9.3); Neutrophils # 3.4 K/mm3 (1.8-7.8); Neutrophils % 60.3 % (37.0-80.0); Nucleated Red Blood Cells # 0 10^3/uL; Nucleated Red Blood Cells % 0 %; Platelet Count 312 K/mm3 (142-424); Red Cell Distribution Width 13.4 % (11.5-17.5); Red Cell Distribution Width-SD 45.8 fL; White Blood Count 5.7 K/mm3 (4.8-10.8)
[2025-01-08 19:00] LABS: Direct LDL Cholesterol 81.31 mg/dL (100-129)
[2025-01-08 19:03] LABS: Hemoglobin A1C 5.5 % (4.0-6.0)
[2025-01-08 19:06] LABS: 25-OH Vitamin D, Total 36.9 ng/mL (30-100)
[2025-01-08 19:18] LABS: Thyroid Stimulating Hormone 1.03 uIU/mL (0.465-4.68)
[2025-01-08 19:33] LABS: HIV Combo NEGATIVE (Negative)
[2025-01-08 19:37] LABS: Vitamin B12 696 pg/mL (239-931)
[2025-01-08 19:41] LABS: Hepatitis C Ab Qual. W/ RFX NEGATIVE (Negative)
[2025-01-08 19:42] LABS: Alanine Aminotransferase 46 U/L (12-78); Albumin/Globulin Ratio 1.5 (1.1-1.8); Alkaline Phosphatase 100 U/L (38-126); Anion Gap 10.4 mEq/L (5-15); Aspartate Amino Transferase 47 U/L (14-36); Bilirubin,Total 0.5 mg/dl (0.2-1.3); Blood Urea Nitrogen 16 mg/dl (7-17); Calcium 11.7 mg/dl (8.4-10.2); Carbon Dioxide 30 mmol/L (22.0-30.0); Chloride 102 mmol/L (98-107); Chol/HDL Ratio 3.3 (1-3.5); Cholesterol 179 mg/dl (140-200); Estimated Glomerular Filt Rate 104 ml/min (>60); GFR (African American) 126 ML/MIN (>60); Globulin 3.4 g/dL (1.3-3.2); Glucose 69 mg/dl (74-100); HDL Cholesterol 54 mg/dl (40-60); Potassium 4.4 mmoL/L (3.5-5.1); Sodium 138 mmol/L (136-145); Total Protein,Serum 8.4 g/dl (6.3-8.2); Triglycerides 131 mg/dl (30-150); VLDL Cholesterol 26 mg/dL (0-40)
[2025-01-10 09:16] LABS: Hepatitis B Surface Antigen Negative (Negative)
== END 2025-01-08 23:59 | disposition home or self-care (01) ==
LOC: LAB.DROPOF 22:49
PROVIDERS: PCP Family Medicine; Visit Provider Family Medicine
DX: R06.09 Other forms of dyspnea (principal); R07.9 Chest pain, unspecified; R53.83 Other fatigue
CPT/HCPCS: 80053; 80061; 82306; 82607; 83036; 84443; 85025; 86803; 87340; 87389

== ENCOUNTER 2025-01-19 12:03 | Outpatient (CLI) | payer MEDICAID, SELFPAY ==
--- NOTE | 2025-01-19 | CA_ITS ---
APPROVED REPORT Exam: Pharmacologic Technologist: Maureen Patterson Ht: 5 ft 2 in Wt: 135 lbs BSA: 1.62 m2 HR: 59 bpm BP: 149/77 mmHg Stress Test Details Test: Lexiscan HR Resting HR: 59 bpm Max Heart Rate (APMHR): 166.329192 bpm Max HR Achieved: 83 bpm Target HR (85% APMHR): 141.442895 bpm % of APMHR: 50.00 Recovery HR: 69 bpm BP Resting BP: 149.0/77.0 mmHg Max BP: 149.0/77.0 mmHg Recovery BP: 144.0/83.0 mmHg ECG Resting ECG: Sinus rhythm Stress ECG Conclusion Symptoms: Dyspnea, chest pressure Arrhythmias/Ectopy: - ST-T Changes: Less than [address] depression Conclusion: EKG unremarkable due to Lexiscan infusion. Electronically signed by : Brianna Ahn MD 01/19/2025 23:22:08
--- NOTE | 2025-01-19 12:30 | NM_ITS ---
APPROVED REPORT Exam: Nuclear Stress Test Indication: Chest pain, SOB, Abnormal EKG, High cholesterol, Tobacco use, Family history Patient Location: Outpatient Stress Tech: Maureen Patterson [place] Tech:Olivia Whitley, ARRT, RT (R)(N) Ht: 5 ft 2 in Wt: 135 lbs Bra Size: 36B HR: 62 bpm BP: 149/77 mmHg BSA: 1.62 m2 TID: 1.10 BMI: 24.6 History: Chest pain, SOB, Abnormal EKG, High cholesterol, Tobacco use, Family history Procedure: Patient received 0.4 mg of intravenous Lexiscan, resting heart rate 62 bpm, resting blood pressure 149/77 mmHg, with Lexiscan maximum heart rate achieved was 90 bpm which is % of the maximum predicted heart rate and blood pressure was 144/83 mmHg. With Lexiscan, patient denied any complaint of chest pain. Cardiac Stress and Resting SPECT Images: Cardiac Stress and Resting SPECT images were obtained using technetium 99m Myoview 32.6 mCi stress and 10.56 mCi at rest. Resting and stress imaging in supine and prone positions demonstrate no evidence of fixed or reversible perfusion defects. Gated imaging demonstrates normal global and regional LV systolic function. LVEF is calculated at 59%. Conclusion: No evidence of fixed or reversible perfusion defects. Gated imaging demonstrates normal global and regional LV systolic function. LVEF is calculated at 59%. Electronically signed by : Brianna Ahn MD 01/19/2025 23:21:58
[2025-01-19] MEDS: SODIUM CHLORIDE 0.9% 10ML SYR (RAD ONLY) 10 ML IV ×2 (13:26)
[2025-01-19] MEDS: ISOTOPE MYOVIEW (PER STUDY) 1 DOSE IV (13:26)
[2025-01-19] MEDS: REGADENOSON 0.4MG/5ML SYRINGE 0.4 MG IV (13:26)
--- NOTE | 2025-01-19 15:15 | CA_ITS ---
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: Lisbeth Powell, RCS, RVS Ht: 5 ft 2 in Wt: 135lbs BSA: 1.62 BP: 126/84 mmHg Indications: Dyspnea on exertion, [id number] use, chest pain 2D Dimensions Aortic Root 2.67 cm LA Volume 61.50 mL Left Atrium 2.52 cm LA Volume Index 37.003580 mL/m2 (M/F) 16-34 RVID Base (AP4) 2.54 cm (M/F) 2.5-4.1 EF AP4 60.80 % LVOT 1.69 cm (M/F) 1.5-2.5 GL Strain -19.2 % M-Mode Dimensions RVDd 1.83 cm (0.9-2.6) LVDd 4.88 cm (3.5-5.7) Ao Diam 2.89 cm (2.0-3.7) LVDs 2.87 cm (3.5-5.7) IVSd 0.67 cm (0.6-1.1) PWd 0.75 cm (0.6-1.1) EF (Teich) 71.90% EPSs 0.23 cm FS 41.20% EDV (Teich) 111.70 mL TAPSE 2.39 (<1.7) ESV (Teich) 31.40 mL LV Diastology E Decel Time 303 (160-240 msec) E/A Ratio 1.36 MED E' 11.2 (>= 7 cm/sec) MED A' 8.70 cm/s E'/MED E' Ratio 7.08 (<= 14) LAT E' 12.8 (>= 10 cm/sec) LAT A' 8.10 cm/s E/LAT E' Ratio 6.20 (<= 14) Aortic Valve LVOT Max 96.0 (70-110 cm/s) JAD Index 1.01 cm2/m2 LVOT VTI 20.78 cm AoV Peak Kevan. 126.0 (50-130 cm/s) AO Mean GR. 3.10 (<5 mmHg) AO VTI 28.5 (18-25 cm) JAD (VTI) 1.63 (2.5-4.5 cm2) Mitral Valve MV E Max Kevan. 79.0 (40-130 cm/s) MV A Velocity 58.0 (40-130 cm/s) E/A Ratio 1.36 MV Decel. Time 303 (160-240 ms) Tricuspid Valve TR P. Velocity 270.00 cm/s RAP Estimate 10.00 mmHg RVSP 39.10 mmHg Left Ventricle The left ventricle is normal size. The left ventricular systolic function is normal. The left ventricular ejection fraction is within the normal range. There is increased LV wall thickness. There is normal LV segmental wall motion. The left ventricular diastolic function is normal. LVEF is 55%. Right Ventricle The right ventricle is normal size. The right ventricular systolic function is normal. Atria The left atrium size is normal. The right atrium size is normal. There is no Doppler evidence of interatrial shunt. Aortic Valve Aortic valve opens well. There is no aortic valvular stenosis. No aortic regurgitation is present. Mitral Valve The mitral valve is normal in structure. No evidence of mitral valve stenosis. Mild mitral regurgitation. Tricuspid Valve Tricuspid valve is grossly normal in structure and function. Mild tricuspid regurgitation. RVSP is 20-25 mmHg. Pulmonic Valve The pulmonary valve is normal in structure. Trace pulmonic regurgitation. Great Vessels The aortic root is normal in size. IVC is normal in size and collapses >50% with inspiration. Pericardium There is no pericardial effusion. Other Information Study Quality: Fair Conclusion Normal biventricular systolic function. Mild MR, mild TR. Electronically signed by : Brianna Ahn MD 01/23/2025 00:40:26
== END 2025-01-19 23:59 | disposition home or self-care (01) ==
LOC: RAD 12:04
PROVIDERS: PCP Family Medicine; Visit Provider Family Medicine
DX: I08.1 Rheumatic disorders of both mitral and tricuspid valves (principal); I20.89 Other forms of angina pectoris; E78.00 Pure hypercholesterolemia, unspecified; R94.31 Abnormal electrocardiogram [ECG] [EKG]; Z82.49 Family history of ischemic heart disease and other diseases of the circulatory system; Z87.891 Personal history of nicotine dependence
CPT/HCPCS: 78452; 93017; 93018; 93306; A9502; J2785

== ENCOUNTER 2025-01-25 18:59 | Outpatient (CLI) | payer MEDICAID, SELFPAY ==
[2025-01-25 19:48] LABS: Albumin Level 4.5 g/dl (3.5-5.0); Chloride 100 mmol/L (98-107); Potassium 4.2 mmoL/L (3.5-5.1); Sodium 140 mmol/L (136-145)
[2025-01-25 19:51] LABS: Alanine Aminotransferase 42 U/L (12-78); Albumin/Globulin Ratio 1.5 (1.1-1.8); Alkaline Phosphatase 98 U/L (38-126); Anion Gap 17.2 mEq/L (5-15); Aspartate Amino Transferase 37 U/L (14-36); Bilirubin,Total 0.3 mg/dl (0.2-1.3); Blood Urea Nitrogen 18 mg/dl (7-17); Carbon Dioxide 27 mmol/L (22.0-30.0); Estimated Glomerular Filt Rate 87 ml/min (>60); GFR (African American) 106 ML/MIN (>60); Total Protein,Serum 7.5 g/dl (6.3-8.2)
[2025-01-25 19:52] LABS: Calcium 9.7 mg/dl (8.4-10.2); Glucose 92 mg/dl (74-100)
== END 2025-01-25 23:59 | disposition home or self-care (01) ==
LOC: LAB 19:00
PROVIDERS: PCP Family Medicine; Visit Provider Family Medicine
DX: E83.52 Hypercalcemia (principal)
CPT/HCPCS: 80053

== ENCOUNTER 2025-02-17 14:31 | Outpatient (CLI) | payer MEDICAID, SELFPAY | END 2025-02-17 23:59 | disposition home or self-care (01) | LOC: RT 14:32 | PROVIDERS: PCP Family Medicine; Visit Provider Physician Assistant | DX: I49.1 Atrial premature depolarization (principal) | CPT/HCPCS: 93225; 93227; 93270 ==

== ENCOUNTER 2025-02-19 14:36 | Outpatient (CLI) | payer MEDICAID, SELFPAY | END 2025-02-19 23:59 | disposition home or self-care (01) | LOC: RT 14:37 | PROVIDERS: PCP Family Medicine; Visit Provider Physician Assistant | DX: I49.1 Atrial premature depolarization (principal); I49.3 Ventricular premature depolarization | CPT/HCPCS: 93270 ==